=== PATIENT | female | born 1995 | race Caucasian/White ===

== ENCOUNTER 2018-10-18 17:11 | Emergency (ER) | payer SELFPAY ==
[2018-10-18 18:30] VITALS: BP 113/62
== END 2018-10-19 01:08 | disposition left against medical advice (07) ==
LOC: ED 17:11
DX: N93.9 Abnormal uterine and vaginal bleeding, unspecified (principal); Z53.21 Procedure and treatment not carried out due to patient leaving prior to being seen by health care provider